=== PATIENT | male | born 1995 | race Caucasian/White ===

== ENCOUNTER 2018-10-25 17:33 | Emergency (ER) | payer MEDICAID ==
[~2018-10-25] VITALS: Ht 182.9 cm; Wt 114.0 kg
[~2018-10-25 17:33] MED LIST: LIDOcaine 1% w/EPI 1:100,000 30ml vial (MDV) ONE; NO HOME MEDS
[2018-10-25 17:54] VITALS: BP 146/102
[2018-10-25] MEDS ORDERED: rabies vaccine (PCEC)/PF 2.5 unit kit IM ONE (20:05)
[2018-10-25] MEDS ORDERED: rabies immune globulin/PF 150 unit/ml inj IM ONE (20:05)
[2018-10-25] MEDS ORDERED: TETanus/Pertussis (Acell)/Diphther VAC/PF (Tdap-Adult) 0.5ml syringe IM ONE (20:05)
[2018-10-25] MEDS ORDERED: AMOX-580 PO (21:00)
[2018-10-25] MEDS ORDERED: HYDR-3965 PO (22:28)
[2018-10-25] MEDS ORDERED: HYDROcodone/acetaminophen 5mg/325mg tablet PO ONE (22:40)
== END 2018-10-25 22:54 | disposition home or self-care (01) ==
LOC: ER 17:34
DX: S81.012A Laceration without foreign body, left knee, initial encounter (principal); S81.812A Laceration without foreign body, left lower leg, initial encounter; S91.332A Puncture wound without foreign body, left foot, initial encounter; Z20.3 Contact with and (suspected) exposure to rabies; S21.259A Open bite of unspecified back wall of thorax without penetration into thoracic cavity, initial encounter; S81.851A Open bite, right lower leg, initial encounter; Z79.2 Long term (current) use of antibiotics; Z79.899 Other long term (current) drug therapy; W54.0XXA Bitten by dog, initial encounter; Y93.89 Activity, other specified; Y92.89 Other specified places as the place of occurrence of the external cause; Y99.8 Other external cause status
CPT/HCPCS: 12002; 90375; 90471; 90472; 90675; 90715; 96372; 99283; J3490